=== PATIENT | male | born 1960 | race Caucasian/White ===

== ENCOUNTER → 2018-04-26 08:36 | Outpatient (CLI) | payer BC, SELFPAY ==
--- NOTE | 2018-04-26 08:51 | US_ITS ---
US abdomen limited History:Belching Ordering Physician:Jeremias Wen Patient Age: 58 years Comparison:No Findings: Pancreas:Unremarkable. No obvious mass or abnormal fluid collection. No ductal dilatation Liver:No focal liver lesions demonstrated. Homogeneous echogenicity. No intrahepatic biliary ductal dilatation evident Right Kidney:Unremarkable. Normal size and echogenicity. No hydronephrosis Gallbladder:No gallstones, gallbladder wall thickening, pericholecystic fluid, or biliary dilatation. Impression:Negative gallbladder/right upper quadrant ultrasound
== END ==
PROVIDERS: PCP Emergency Medicine; Visit Provider Internal Medicine
DX: R14.2 Eructation (principal)
CPT/HCPCS: 76705